=== PATIENT | female | born 1960 | race Caucasian/White ===

== ENCOUNTER 2019-06-24 20:53 | Emergency (ER) | payer MEDICARE, SELFPAY ==
[2019-06-24 21:34] VITALS: BP 120/82; PULSE 85; RESP 18; TEMP 36.6; O2SAT 97; BMI 38.5
--- NOTE | 2019-06-24 22:04 | DI.RAD.S_ITS ---
PROCEDURE: XR FOOT LT MIN 3V INDICATIONS: pain distal midfoot TECHNIQUE: 2 views of the foot were acquired. COMPARISON: None. FINDINGS: Bones: There is irregular, minimally displaced lucency along the medial aspect of the navicular bone. No definitive soft tissue edema is present. Soft tissues: No tibiotalar joint effusion. Achilles tendon appears normal. IMPRESSION: Irregular navicular lucency as above. Chronicity is considered indeterminate and this could represent old injury. Recommend correlation of point tenderness and additional imaging such as CT if concern for acute fracture persists. The above findings were discussed with Dr. Beverly Kendrick on 06/25/19 at 10:22am. Dictated by: Suma Wilson M.D. on 06/25/2019 at 10:22 Approved by: Suma Wilson M.D. on 06/25/2019 at 10:30
--- NOTE | 2019-06-24 22:29 | ED.LOWEXIN ---
HPI - Extremity Injury (Lower) General Chief Complaint: Extremity Injury, Lower Stated Complaint: UNABLE TO PUT PRESSURE ON TOES PAIN Time Seen by Provider: 06/24/19 21:28 Source: patient Mode of arrival: Ambulatory Limitations: no limitations History of Present Illness HPI Narrative: 59-year-old female here for evaluation of left foot pain. Patient states she went on a walk today. Approximately 30 minutes into the walk she started to have pain on the bottom of her right foot at the base of the 2nd and 3rd toes. No specific trauma. States that the pain occurs when she is standing on the foot. Related Data Allergies Allergy/AdvReac Type Severity Reaction Status Date / Time No Known Drug Allergies Allergy Verified 06/24/19 21:33 Review of Systems Constitutional Constitutional: Denies fever(s) Musculoskeletal Musculoskeletal: Denies tingling Comments: Foot pain Integumentary/Breasts Skin/Breast: Denies lesions and Denies rash Neurologic Neurologic: Denies behavioral changes, Denies tingling and Denies paresthesias Psychiatric Psychiatric: Denies behavioral changes Hematologic/Lymphatic Hematologic/Lymphatic: Denies easy bleeding and Denies easy bruising Patient History Medical History Healthy adult (Acute) Social History Smoking Status: Never smoker Smoking Status: Never smoker Substance Use Type: does not use Exam Initial Vital Signs Initial Vital Signs: Vital Signs Temperature 97.8 F 06/24/19 21:34 Pulse Rate 85 06/24/19 21:34 Respiratory Rate 18 06/24/19 21:34 Blood Pressure 120/82 06/24/19 21:34 Pulse Oximetry 97 06/24/19 21:34 HENMT Head: normal to inspection and normocephalic Cardio Pulses: dorsalis pedis present on the left Skin Lesions: no lesions Rashes: no rashes Neuro General: alert and awake Cognition: normal cognition Speech: speech normal Sensory Exam: no sensory deficits noted Extrem Other: Left ankle unremarkable. Left he posterior and mid foot unremarkable. Tenderness to palpation on the distal metatarsals of the 2nd and 3rd patient does not have any tenderness to palpation fusion states the symptoms occur when she stands. Course Orders Ordered: ED Orders 06/24/19 22:04 XR foot LT min 3V Stat Vital Signs Vital signs: Vital Signs - 8 hr 02/24/20 21:34 Temperature 97.8 F Pulse Rate 85 Respiratory Rate 18 Blood Pressure 120/82 Pulse Oximetry 97 MDM - Extremity Injury (Lower) Imaging Data Extremity x-ray #1: Attestation: I personally reviewed and interpreted this imaging study as follows: My Impression: No fractures or dislocations MDM Narrative Medical decision making narrative: Patient is neurovascularly intact. No signs of cellulitis. No fractures on the x-rays. Unsure of the exact etiology the symptoms do not feel we could hold on further workup for now. Patient was given an ortho shoe for her comfort. She was given return precautions and follow-up instructions. She expressed understanding and agreement Discharge Plan Departure Patient Disposition: Home Clinical Impression: Foot pain, left Discharge Date/Time: 06/24/19 22:52 Instructions: DI for Foot Pain Activity Restrictions/Additional Instructions: Use the ortho shoe as needed for your comfort. Also recommend that you ice your foot like we discussed. Contact your primary provider for a follow-up. Referrals: Tin Marroquin RN [Primary Care Provider] -
== END 2019-06-24 22:52 | disposition home or self-care (01) ==
PROVIDERS: Emergency Provider Emergency Medicine; PCP Nurse Practitioner Family
DX: M79.672 Pain in left foot (principal)
CPT/HCPCS: 73630; 99283